=== PATIENT | female | born 1995 | race Caucasian/White ===

== ENCOUNTER 2016-08-08 23:40 | Emergency (ER) | payer SELFPAY ==
[2016-08-08] MEDS ORDERED: NS 1,000 ML IV ONE ×2 (23:45)
--- NOTE | 2016-08-08 23:45 | EDPHY ---
H & P HPI/ROS: HPI CHIEF COMPLAINT: Syncope, ketamine ingestion HISTORY OF PRESENT ILLNESS: this patient very pleasant 21-year-old female, she denies having any significant medical history she presents to the emergency room by EMS after she had a syncopal episode at a libertarian o'clock this evening. She was doing ketamine. She was standing at the bar. And she had a syncopal episode. There was no head strike. She was unable to ambulate after the syncopal episode EMS arrived and assisted her to the stretcher. They brought her to the emergency room where she has high on ketamine. She denies any other ingestion alcohol or drugs. Past Medical History: Denies medical history Past Surgical History:Denies significant surgical history Social History: denies use of alcohol tobacco or marijuana but ingested ketamine this evening Family History: noncontributory ROS REVIEW OF SYSTEMS: A comprehensive 10 point review of systems is otherwise negative aside from elements mentioned in the history of present illness. Exam Constitutional appears high, horizontal beating nystagmus consistent with acute intoxication, triage nursing summary reviewed, vital signs reviewed, awake /alert. Eyes normal conjunctivae and sclera, EOMI, pupils are equal round reactive light however they are rather large 5 mm equal HENT normal inspection, atraumatic, moist mucus membranes, no epistaxis, neck supple/ no meningismus, no raccoon eyes. Respiratory clear to auscultation bilaterally, normal breath sounds, no respiratory distress, no wheezing. Cardiovascular tachycardic , regular rhythm, no murmur, no edema, distal pulses normal. Gastrointestinal soft, non-tender, no rebound, no guarding, normal bowel sounds, no distension, no pulsatile mass. Genitourinary no CVA tenderness. Musculoskeletal no midline vertebral tenderness, full range of motion, no calf swelling, no tenderness of extremities, no meningismus, good pulses, neurovascularly intact. Skin pink, warm, & dry, no rash, skin atraumatic. Neurologic awake, alert and oriented x 3, AAOx3, moves all 4 extremities equally, motor intact, sensory intact, CN II-XII intact, normal cerebellar, normal vision, normal speech. Psychiatric normal mood/affect. Heme/Lymph/Immune no lymphadenopathy. Differential Diagnosis: includes but is not limited to in a particular order, vasovagal syncope, orthostatic syncope, dehydration, ketamine ingestion, electrolyte abnormality Medical Decision Making: this patient had an IV established will obtain blood work including electrolytes she has been taking ketamine and is at a [employer] libertarian. Will place her on a full telemetry monitor she will have an EKG due to tachycardia should be hydrated with IV fluids. She will be monitored for sobriety she is very intoxicated with ketamine at this time. Re-evaluation: EKG interpretation by me on record in [employer] system. Impression time of EKG 1:00 a.m., this is sinus rhythm rate of 92, no acute ischemic changes appreciated, no signs of cardiac arrhythmia. Intervals are appropriate. 0351: re-examination at this time this patient is resting comfortably no acute distress. She is completely sober nail. She has been in the emergency room for 4 hours. She ambulated well to the bathroom tonight difficulty. She no longer feels higher intoxicated with ketamine. She is requesting be discharged boyfriend at bedside agrees to be discharged with her. She has a steady gait, she is not vomiting her vital signs are normal and she is ready to go home. Most likely cause of syncope is due to dehydration and drug intoxication. Source: Patient, EMS Constitutional: Initial Vital Signs Temperature (C) 36.7 C 08/08/16 23:40 Heart Rate 108 H 08/08/16 23:40 Respiratory Rate 16 08/08/16 23:40 Blood Pressure 135/103 H 08/08/16 23:40 O2 Sat (%) 91 L 08/08/16 23:40 O2 Delivery Mode Room Air Allergies/Adverse Reactions: No Known Allergies Allergy (Unverified 08/08/16 23:49) Home Medications: Medication Instructions Recorded NK [No Known Home Meds] 08/08/16 Medical Decision Making - Data Points Laboratory Results: Laboratory Results 08/09/16 02:00 08/09/16 00:45 08/09/16 08/09/16 02:00 00:45 WBC 8.48 10^3/uL REJ (3.80-9.50) RBC 4.48 10^6/uL REJ (4.18-5.33) Hgb 13.1 g/dL REJ (12.6-16.3) Hct 41.0 % REJ (38.0-47.0) MCV 91.5 fL REJ (81.5-99.8) MCH 29.2 pg REJ (27.9-34.1) MCHC 32.0 L g/dL REJ (32.4-36.7) RDW 12.1 % REJ (11.5-15.2) Plt Count 222 10^3/uL REJ (150-400) MPV 9.8 fL REJ (8.7-11.7) Neut % (Auto) 71.9 % REJ (39.3-74.2) Lymph % (Auto) 20.8 % REJ (15.0-45.0) [place] % (Auto) 5.7 % REJ (4.5-13.0) Eos % (Auto) 0.4 L % REJ (0.6-7.6) Baso % (Auto) 0.5 % REJ (0.3-1.7) Nucleat RBC Rel Count 0.0 % REJ (0.0-0.2) Absolute Neuts (auto) 6.11 10^3/uL REJ (1.70-6.50) Absolute Lymphs (auto) 1.76 10^3/uL REJ (1.00-3.00) Absolute Monos (auto) 0.48 10^3/uL REJ (0.30-0.80) Absolute Eos (auto) 0.03 10^3/uL REJ (0.03-0.40) Absolute Basos (auto) 0.04 10^3/uL REJ (0.02-0.10) Absolute Nucleated RBC 0.00 10^3/uL REJ (0-0.01) Immature Gran % 0.7 % REJ (0.0-1.1) Immature Gran # 0.06 10^3/uL REJ (0.00-0.10) Sodium 143 mEq/L (134-144) Potassium 4.5 mEq/L (3.5-5.2) Chloride 107 mEq/L (97-110) Carbon Dioxide 20 L mEq/l (22-31) Anion Gap 16 mEq/L (8-16) BUN 5 L mg/dL (7-23) Creatinine 0.6 mg/dL (0.6-1.0) Estimated GFR > 60 Glucose 101 H mg/dL (70-100) Calcium 9.9 mg/dL (8.5-10.4) Magnesium 2.0 mg/dL (1.6-2.3) Total Bilirubin 0.5 mg/dL (0.1-1.4) Conjugated Bilirubin 0.5 mg/dL (0.0-0.5) Unconjugated Bilirubin 0.0 mg/dL (0.0-1.1) AST 28 IU/L (14-46) ALT 29 IU/L (9-52) Alkaline Phosphatase 96 IU/L (38-126) Total Protein 8.4 H g/dL (6.3-8.2) Albumin 4.9 g/dL (3.5-5.0) Medications Given: Discontinued Medications Sodium Chloride (Ns) 1,000 mls @ 0 mls/hr IV ONCE ONE PRN Reason: As Directed Stop: 08/08/16 23:46 Last Admin: 08/09/16 02:00 Dose: 1,000 mls Sodium Chloride (Ns) 1,000 mls @ 0 mls/hr IV ONCE ONE PRN Reason: Wide Open Stop: 08/08/16 23:46 Last Admin: 08/09/16 01:13 Dose: 1,000 mls Departure - Departure Disposition: Home, Routine, Self-Care Clinical Impression: Substance abuse Condition: Good Instructions: Polysubstance Abuse (ED), Dehydration (ED), Syncope (ED) Additional Instructions: 1. Stay well-hydrated. 2. return to the emergency room if develops any worsening symptoms questions or concerns.
[2016-08-08 23:53] VITALS: TEMP 98.1
--- NOTE | 2016-08-09 01:02 | CPEKG ---
Heart Rate: 92 RR Interval: 652 P-R Interval: 156 QRSD Interval: 84 QT Interval: 344 QTC Interval: 426 P [place]: 45 QRS [place]: 53 T Wave [place]: 32 EKG Severity - NORMAL ECG - EKG Impression: SINUS RHYTHM Electronically Signed By: Jarvis Shane 10-Aug-2016 22:25:19
[2016-08-09 01:10] LABS: ALANINE AMINOTRANSFERASE 29 IU/L (9-52); ALBUMIN 4.9 g/dL (3.5-5.0); ALKALINE PHOSPHATASE 96 IU/L (38-126); ANION GAP 16 mEq/L (8-16); ASPARTATE AMINOTRANSFERASE 28 IU/L (14-46); BILIRUBIN,TOTAL 0.5 mg/dL (0.1-1.4); BILIRUBIN-CONJUGATED 0.5 mg/dL (0.0-0.5); CALCIUM 9.9 mg/dL (8.5-10.4); CARBON DIOXIDE 20 mEq/l (22-31); CHLORIDE 107 mEq/L (97-110); CREATININE 0.6 mg/dL (0.6-1.0); GLOMERULAR FILTRATION RATE > 60; GLUCOSE 101 mg/dL (70-100); POTASSIUM 4.5 mEq/L (3.5-5.2); SODIUM 143 mEq/L (134-144); TOTAL PROTEIN 8.4 g/dL (6.3-8.2)
[2016-08-09 02:14] LABS: % IMMATURE GRANULYOCYTES 0.7 % (0.0-1.1); ABSOLUTE IMMATURE GRANULOCYTES 0.06 10^3/uL (0.00-0.10); ADD DIFF? NO; ADD MORPH? NO; ADD SCAN? NO; ATYPICAL LYMPHOCYTE FLAG 50 (0-99); FRAGMENT RBC FLAG 0 (0-99); HEMOGLOBIN 13.1 g/dL (12.6-16.3); LEFT SHIFT FLG 0 (0-99); LIPEMIA HEMOLYSIS FLAG 80 (0-99); MEAN CELL HEMOGLOBIN 29.2 pg (27.9-34.1); MEAN CELL VOLUME 91.5 fL (81.5-99.8); MEAN PLATELET VOLUME 9.8 fL (8.7-11.7); PLATELET CLUMPS FLAG 10 (0-99); PLATELET COUNT 222 10^3/uL (150-400); RED BLOOD CELL COUNT 4.48 10^6/uL (4.18-5.33); RED CELL DISTRIBUTION WIDTH 12.1 % (11.5-15.2)
[2016-08-09 04:09] VITALS: BP 136/85; PULSE 93; RESP 18; O2SAT 100
== END 2016-08-09 04:10 | disposition home or self-care (01) ==
DX: F13.10 Sedative, hypnotic or anxiolytic abuse, uncomplicated (principal)
CPT/HCPCS: 80305

== ENCOUNTER → 2017-06-19 | Outpatient (CLI) | payer OTHER | LOC: BMCIMAGING 15:08 | PROVIDERS: ATTEND Family Medicine | DX: S52.571A Other intraarticular fracture of lower end of right radius, initial encounter for closed fracture (principal); V00.318A Other snowboard accident, initial encounter ==